=== PATIENT | female | born 1955 | race Caucasian/White ===

== ENCOUNTER → 2018-12-09 | Outpatient (CLI) | payer MEDICARE, OTHER | LOC: DIA.ED 09:24 | DX: E11.9 Type 2 diabetes mellitus without complications (principal); E11.40 Type 2 diabetes mellitus with diabetic neuropathy, unspecified; E03.9 Hypothyroidism, unspecified | CPT/HCPCS: G0108 ==

== ENCOUNTER → 2018-12-10 | Outpatient (CLI) | payer MEDICARE, OTHER | LOC: DIA.ED 10:00 | DX: E11.40 Type 2 diabetes mellitus with diabetic neuropathy, unspecified (principal); E03.9 Hypothyroidism, unspecified ==

== ENCOUNTER → 2019-03-05 | Outpatient (CLI) | payer MEDICARE, OTHER | LOC: MC.RAD 09:31 | DX: Z12.31 Encounter for screening mammogram for malignant neoplasm of breast (principal); Z90.11 Acquired absence of right breast and nipple ==

== ENCOUNTER 2019-11-16 17:19 | Outpatient (RCR) | payer MEDICARE, OTHER | END 2019-11-17 | disposition home or self-care (01) | LOC: COL.CR | DX: Z48.812 Encounter for surgical aftercare following surgery on the circulatory system (principal); Z95.2 Presence of prosthetic heart valve ==

== ENCOUNTER 2019-11-20 16:45 | Outpatient (RCR) | payer MEDICARE, OTHER | END 2020-02-16 | disposition home or self-care (01) | LOC: COL.CR | DX: Z48.812 Encounter for surgical aftercare following surgery on the circulatory system (principal); Z95.2 Presence of prosthetic heart valve ==

== ENCOUNTER 2020-02-12 13:15 | Outpatient (RCR) | payer SELFPAY | END 2020-02-21 | disposition home or self-care (01) | LOC: COL.CR | DX: Z02.89 Encounter for other administrative examinations (principal) ==

== ENCOUNTER 2020-05-20 14:54 | Outpatient (RCR) | payer SELFPAY ==
[2020-12-30] MEDS ORDERED: ELIQUIS 5MG PO (11:15)
[2020-12-30] MEDS ORDERED: CANA100T PO (11:16)
[2020-12-30] MEDS ORDERED: ACCUPRIL20TAB PO (11:16)
[2020-12-30] MEDS ORDERED: LOPRESSOR 550 MG/TAB PO (11:16)
[2020-12-30] MEDS ORDERED: JANUMET 1000 MG1 TA1 PO (11:17)
[2020-12-30] MEDS ORDERED: CRESTOR40 MG PO (11:17)
[2020-12-30] MEDS ORDERED: TRICOR145 MG PO (11:18)
[2020-12-30] MEDS ORDERED: CLARINEX 5MG5 MG PO (11:18)
[2020-12-30] MEDS ORDERED: SYNTHROID 0.0.025 MG PO (11:20)
[2020-12-30] MEDS ORDERED: MOBIC 7.5MG7.5 MG PO (11:20)
[2020-12-30] MEDS ORDERED: ZOLOFT 50MG50 MG PO (11:21)
== END 2020-05-22 | disposition home or self-care (01) ==
LOC: COL.CR
DX: Z02.89 Encounter for other administrative examinations (principal)

== ENCOUNTER 2020-08-03 15:40 | Outpatient (RCR) | payer SELFPAY ==
[2020-12-30] MEDS ORDERED: ELIQUIS 5MG PO (11:15)
[2020-12-30] MEDS ORDERED: LOPRESSOR 550 MG/TAB PO (11:16)
[2020-12-30] MEDS ORDERED: ACCUPRIL20TAB PO (11:16)
[2020-12-30] MEDS ORDERED: CANA100T PO (11:16)
[2020-12-30] MEDS ORDERED: JANUMET 1000 MG1 TA1 PO (11:17)
[2020-12-30] MEDS ORDERED: CRESTOR40 MG PO (11:17)
[2020-12-30] MEDS ORDERED: CLARINEX 5MG5 MG PO (11:18)
[2020-12-30] MEDS ORDERED: TRICOR145 MG PO (11:18)
[2020-12-30] MEDS ORDERED: SYNTHROID 0.0.025 MG PO (11:20)
[2020-12-30] MEDS ORDERED: MOBIC 7.5MG7.5 MG PO (11:20)
[2020-12-30] MEDS ORDERED: ZOLOFT 50MG50 MG PO (11:21)
== END 2020-08-21 | disposition home or self-care (01) ==
LOC: COL.CR
DX: Z02.89 Encounter for other administrative examinations (principal)

== ENCOUNTER → 2020-10-21 | Outpatient (CLI) | payer MEDICARE, OTHER ==
[~2020-10-21] MED LIST: ACCUPRIL20TAB PO; CANA100T PO; CLARINEX 5MG5 MG PO; CRESTOR40 MG PO; ELIQUIS 5MG PO; JANUMET 1000 MG1 TA1 PO; LOPRESSOR 550 MG/TAB PO; MOBIC 7.5MG7.5 MG PO; SYNTHROID 0.0.025 MG PO; TRICOR145 MG PO; ZOLOFT 50MG50 MG PO
== END ==
LOC: MC.RAD 13:12
DX: Z12.31 Encounter for screening mammogram for malignant neoplasm of breast (principal)

== ENCOUNTER → 2020-12-30 | Day surgery (SDC) | payer MEDICARE, OTHER ==
[~2020-12-30] VITALS: Ht 161.3 cm; Wt 86.8 kg
[2020-12-30 11:09] VITALS: BP 124/67; PULSE 66; TEMP 97.5
[2020-12-30 12:56] VITALS: BP 135/66; PULSE 67; TEMP 97.6
[2020-12-30 13:11] VITALS: BP 134/70; PULSE 67
--- NOTE | 2020-12-30 13:30 | NUR ---
1256 - Pt returns from endo procedure via cart to [facility]. Pt ambulates from cart to recliner with RN assist. Monitors on and alarms set. Call light within reach. Pt alert and oriented. Pt requests sprite and muffin. Pt denies any pain or nausea. 1311 - Pt taking food and drink well. No complications noted. 1336- Discharge instructions given to pt. All questions answered to pt satisfaction. Handed to pt are a thank you card and discharge information. 1340 - Pt transferred out of the hospital via wheelchair, to private vehicle driven by daughter.
[2020-12-30 13:36] VITALS: BP 141/86; PULSE 67
== END ==
LOC: SDCO 10:04
DX: Z12.11 Encounter for screening for malignant neoplasm of colon (principal); K64.1 Second degree hemorrhoids; I10 Essential (primary) hypertension; I25.10 Atherosclerotic heart disease of native coronary artery without angina pectoris; E66.9 Obesity, unspecified; E78.49 Other hyperlipidemia; E78.5 Hyperlipidemia, unspecified; E11.9 Type 2 diabetes mellitus without complications; E03.9 Hypothyroidism, unspecified; M19.90 Unspecified osteoarthritis, unspecified site; K21.9 Gastro-esophageal reflux disease without esophagitis; F32.9 Major depressive disorder, single episode, unspecified; F41.9 Anxiety disorder, unspecified; Z79.01 Long term (current) use of anticoagulants; Z79.890 Hormone replacement therapy; Z79.899 Other long term (current) drug therapy; Z85.3 Personal history of malignant neoplasm of breast; Z20.822 Contact with and (suspected) exposure to COVID-19; Z68.39 Body mass index [BMI] 39.0-39.9, adult; Z95.2 Presence of prosthetic heart valve; Z79.4 Long term (current) use of insulin; Z83.3 Family history of diabetes mellitus; Z82.3 Family history of stroke
CPT/HCPCS: J2704; J7120

== ENCOUNTER 2021-06-19 14:52 | Outpatient (RCR) | payer SELFPAY | END 2021-06-22 | LOC: COL.CR | DX: Z29.8 Encounter for other specified prophylactic measures (principal) ==

== ENCOUNTER 2021-07-21 15:58 | Outpatient (RCR) | payer SELFPAY | END 2021-07-22 | LOC: COL.CR | DX: Z29.8 Encounter for other specified prophylactic measures (principal) ==

== ENCOUNTER 2021-08-07 16:00 | Outpatient (RCR) | payer SELFPAY | END 2021-08-22 | LOC: COL.CR | DX: Z29.8 Encounter for other specified prophylactic measures (principal) ==

== ENCOUNTER 2021-09-18 11:45 | Outpatient (RCR) | payer SELFPAY | END 2021-09-21 | LOC: COL.CR | DX: Z29.8 Encounter for other specified prophylactic measures (principal) ==

== ENCOUNTER 2021-10-20 13:03 | Outpatient (RCR) | payer SELFPAY | END 2021-10-22 | LOC: COL.CR | DX: Z29.8 Encounter for other specified prophylactic measures (principal) ==

== ENCOUNTER 2021-11-15 15:53 | Outpatient (RCR) | payer SELFPAY | END 2021-11-22 | LOC: COL.CR | DX: Z29.8 Encounter for other specified prophylactic measures (principal) ==